=== PATIENT | female | born 1945 | race African-American/Black ===

== ENCOUNTER 2016-11-21 20:01 | Emergency (ER) | payer OTHER ==
[~2016-11-21] VITALS: Ht 157.5 cm; Wt 65.0 kg
[2016-11-21] MEDS ORDERED: LIDOCAINE HCL 1% 20ML VIAL (Pyxis) INJ MC ONE (21:15)
[2016-11-21 23:08] VITALS: BP 145/72
== END 2016-11-21 23:23 | disposition home or self-care (01) ==
LOC: ER 20:51
DX: S01.111A Laceration without foreign body of right eyelid and periocular area, initial encounter (principal); W10.8XXA Fall (on) (from) other stairs and steps, initial encounter; W01.198A Fall on same level from slipping, tripping and stumbling with subsequent striking against other object, initial encounter; Y93.89 Activity, other specified; Y92.89 Other specified places as the place of occurrence of the external cause
CPT/HCPCS: 12011; 70486; 99284; J3490